=== PATIENT | female | born 1985 | race Two or more races ===

== ENCOUNTER 2023-03-10 07:45 | Inpatient (IN) | payer OTHER ==
[~2023-03-10] VITALS: Ht 162.6 cm; Wt 95.3 kg
[2023-03-10 09:39] LABS: HEMOGLOBIN 12.8 g/dL (12.0-15.00); PLATELET COUNT 299 K/uL (150-450); RED BLOOD COUNT 5.33 M/uL (4.00-6.00); RED CELL DISTRIBUTION WIDTH 15.1 % (11.5-14.5)
[2023-03-10 10:22] LABS: URINE EPITHELIAL CELLS 7.4 uL (0.0-38.8); URINE RBC 2.8 uL (0.0-20.8); URINE WBC 6.4 uL (0.0-23.2)
[2023-03-10 10:35] LABS: INR 0.97; PROTHROMBIN TIME 10.2 SECONDS (9.0-11.5)
[2023-03-10 10:40] LABS: ALBUMIN 3.3 gm/dL (3.4-5.0); BILIRUBIN TOTAL 0.39 mg/dL (0.3-1.2); CALCIUM 8.6 mg/dL (8.5-10.1); CREATININE SERUM 1.05 mg/dL (0.55-1.02); GFR 58.65; POTASSIUM 4.29 mEq/L (3.5-5.1); TOTAL PROTEIN 7.3 gm/dL (6.4-8.2)
[2023-03-10 10:51] LABS: PH,URINE 5.5 (5.0-8.0); URINE APPEARANCE Clear; URINE BILIRRUBIN Negative (NEGATIVE); URINE BLOOD Small; URINE COLOR Yellow; URINE GLUCOSE Negative (NEGATIVE); URINE LEUKOCYTE Negative; URINE NITRATE Negative; URINE PROTEIN Negative (NEGATIVE); URINE UROBILINOGEN 0.2 E.U./dl
[2023-03-10 10:58] LABS: URINE BACTERIA > 9821.5 uL (0.0-1933)
[2023-03-13 20:49] LABS: HEMATOCRIT 33.8 % (36.0-45.00); HEMOGLOBIN 10.9 g/dL (12.0-15.00); MEAN CELL VOLUME 74.1 fL (80.00-100.00); MEAN CORPUSCULAR HGB CONC 32.4 g/dl (32.0-36.0); PLATELET COUNT 267 K/uL (150-450); RED BLOOD COUNT 4.56 M/uL (4.00-6.00); RED CELL DISTRIBUTION WIDTH 15.2 % (11.5-14.5)
[2023-03-14 12:02] LABS: HEMATOCRIT 32.4 % (36.0-45.00); HEMOGLOBIN 10.4 g/dL (12.0-15.00); MEAN CELL VOLUME 74.7 fL (80.00-100.00); MEAN CORPUSCULAR HGB CONC 32.2 g/dl (32.0-36.0); PLATELET COUNT 249 K/uL (150-450); RED BLOOD COUNT 4.34 M/uL (4.00-6.00); RED CELL DISTRIBUTION WIDTH 14.7 % (11.5-14.5)
[2023-03-14 12:39] LABS: ALBUMIN 2.6 gm/dL (3.4-5.0); BILIRUBIN TOTAL 0.4 mg/dL (0.3-1.2); CALCIUM 7.9 mg/dL (8.5-10.1); CREATININE SERUM 0.91 mg/dL (0.55-1.02); GFR 69.18; GLOBULINA 3.3 G/DL (2.4-3.5); POTASSIUM 3.95 mEq/L (3.5-5.1); TOTAL PROTEIN 5.9 gm/dL (6.4-8.2)
[2023-03-15] MEDS ORDERED: TRAMADOL HCL50 MG PO (07:11)
[2023-03-15] MEDS ORDERED: DUI500 PO (07:11)
[2023-03-15] MEDS ORDERED: POLY119PG PO (07:11)
[2023-03-15] MEDS ORDERED: SIMETHICONE125 M1 PO (07:11)
== END 2023-03-15 08:26 | disposition home or self-care (01) | DRG 743 ==
LOC: O/R 03-13 05:07 → SURG 03-13 07:45 → O/R 03-13 12:29 → SURG 03-13 15:30 → OB/GYN 03-13 15:52
PROVIDERS: ADMIT Obstetrics & Gynecology; ATTEND Obstetrics & Gynecology
PROC: 0UT00ZZ Resection of Right Ovary, Open Approach (ICD-10-PCS; 2023-03-13)
PROC: 0UT50ZZ Resection of Right Fallopian Tube, Open Approach (ICD-10-PCS; principal; 2023-03-13 15:30)
DX: N83.291 Other ovarian cyst, right side (principal); Z20.822 Contact with and (suspected) exposure to COVID-19